=== PATIENT | female | born 1975 | race Caucasian/White ===

== ENCOUNTER 2021-02-16 22:42 | Emergency (ER) | payer OTHER ==
[~2021-02-16] VITALS: Ht 175.3 cm; Wt 100.9 kg
--- NOTE | 2021-02-16 22:49 | PHYS DOC ---
General Adult HPI: HPI: ".. I ve had really bad abdomen pain all day.. and now the Hives everywhere.. this has started in Sep. and I have had it off and on... But it is more severe tonight..." Patient is a 45 year old female who presents with above hx and complaints hives, itching, and generalized abdomen pain. Patient has had intermittent episodes since September with similar presentation. Patient states she frequently has abdomen pain with an onset of the hives. No recent travel. No specific ill contacts. No change in foods. No change in meds. No change in soaps or personal hygiene. No history immunosuppression. No history recent new exposures or foods. Pain usually starts with onset of abdomen pain and then development of the hives. Patient denies any history of hepatitis. 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 No animals are sick. Animals are up-to-date with vaccinations. Patient did get Shaheed & Shaheed vaccine in December of this past year. Review of Systems: Review of Systems: Constitutional: Denies fever or chills Eyes: Denies change in visual acuity HENT: Denies nasal congestion or sore throat Respiratory: Complaints of wheezing Cardiovascular: Denies chest pain or edema GI: Complains of epigastric abdominal pain, nausea,. Denies vomiting, bloody stools or diarrhea : Denies dysuria Musculoskeletal: Denies back pain or joint pain Integument: Complains of diffuse hives Neurologic: Denies headache, focal weakness or sensory changes Endocrine: Denies polyuria or polydipsia Lymphatic: Denies swollen glands Psychiatric: Denies depression or anxiety Family History: Family History: Noncontributory to presentation. Current Medications: Current Meds: See nursing for home meds Allergies: Allergies: No known drug allergies Physical Exam: PE: Constitutional: In moderate acute distress, non-toxic appearance. [] HENT: Normocephalic, atraumatic, bilateral external ears normal, oropharynx moist, no oral exudates, nose swollen turbinates and clear rhinorrhea Eyes: PERRLA, EOMI, conjunctiva normal, no discharge. [] Neck: Normal range of motion, no tenderness, supple, no stridor. [] Cardiovascular:Heart rate regular rhythm, no murmur [] Lungs & Thorax: Bilateral breath sounds equal at apex scattered wheezes auscultation [] Abdomen: Bowel sounds normal, soft, generalized upper abdomen tenderness, no masses, no pulsatile masses. [] Some rebound right upper quadrant Skin: Warm, dry, no erythema, extensive hives all over the body. Does have psoriasis on flexor areas of body. Back: No tenderness, no CVA tenderness. [] Extremities: No tenderness, no cyanosis, no clubbing, ROM intact, no edema. No cording appreciated Neurologic: Alert and oriented X 3, normal motor function, normal sensory function, no focal deficits noted. [] Psychologic: Affect anxious,, judgement normal, mood normal. [] EKG: EKG: My interpretation EKG shows a sinus rhythm at 63 bpm. No acute morphology. No findings of STEMI. [] Radiology/Procedures: Radiology/Procedures: [address] [address] IMAGING REPORT Signed PATIENT: ERICA WOODWARD CACCOUNT: [id number] : 1975 LOCATION: ER AGE: 45 SEX: F EXAM STATUS: REG ER ORD. PHYSICIAN: VIPIN RAUSCH MD REASON: OMNI 300,75ML IV.Epigastric & RUQ abdomen pain PROCEDURE: CT ABD PELV W/ORAL&IV CONTRAST INDICATION: Reason: OMNI 300,75ML IV.Epigastric RUQ abdomen pain / Spl. Instructions: / History: . COMPARISON: None. TECHNIQUE: Axial CT images obtained through the abdomen and pelvis with contrast. One or more of the following individualized dose reduction techniques were utilized for this examination: 1. Automated exposure control; 2. Adjustment of the mA and/or kV according to patient size; 3. Use of iterative reconstruction technique. FINDINGS: 3 mm left lung base nodule. Abdominal aorta is not aneurysmal. Mild low density within the periportal region with prominent liver size. No peripancreatic fluid collection. No perisplenic hematoma. Spleen prominent in size. Urinary bladder is partially distended with mild prominence of the wall. No hydronephrosis. No periappendiceal inflammatory changes. Dominant follicle or small cyst right ovary measuring approximately 19 mm. Degenerative changes spine. IMPRESSION: * No evidence of bowel obstruction or appendicitis. * Urinary bladder wall is mildly prominent. Would correlate with symptoms in the region to ensure that this is not from a pathologic cause such as mild cystitis. Electronically signed by: Lucy Almaguer MD (02/17/2021 3:47 AM) [id number] DICTATED AND SIGNED BY: LUCY ALMAGUER MD DATE: 02/17/21 1804 CC: ALICIA MAYO; VIPIN RAUSCH MD ~MTH0 0 [][address] [address] IMAGING REPORT Signed PATIENT: ERICA WOODWARD CACCOUNT: [id number] : 1975 LOCATION: ER AGE: 45 SEX: F EXAM STATUS: REG ER ORD. PHYSICIAN: VIPIN RAUSCH MD REASON: pain PROCEDURE: ACUTE ABDOMEN SERIES INDICATION: Reason: pain of abdomen/ Spl. Instructions: / History: COMPARISON: None. IMPRESSION: 3 views of the chest and abdomen obtained. No focal airspace consolidation to suggest pneumonia. Multiple calcifications within the pelvis which is commonly from phleboliths formation but would be difficult to exclude ureter stone. There is some high density foci within the abdomen which could be from calcifications or bowel content. Nonspecific bowel gas pattern with mild air-filled prominence of transverse colon measuring up to approximately 6 cm. Moderate stool in colon. Electronically signed by: Lucy Almaguer MD (02/16/2021 11:42 PM) [email or web address]- [id number] DICTATED AND SIGNED BY: LUCY ALMAGUER MD DATE: 02/16/21 4584 CC: ALICIA MAYO; VIPIN RAUSCH MD ~MTH0 0 Heart Score: C/O Chest Pain: Yes HEART Score for Chest Pain: HEART Score for Chest Pain Response (Comments) Value History Slighlty/Non-Suspicious 0 ECG Normal 0 Age >45 - < 65 1 Risk Factors 1 or 2 Risk Factors 1 Troponin < Normal Limit 0 Total 2 Risk Factors: Risk Factors: DM, Current or recent (<one month) smoker, HTN, HLP, family history of CAD, obesity. Risk Scores: Score 0 - 3: 2.5% MACE over next 6 weeks - Discharge Home Score 4 - 6: 20.3% MACE over next 6 weeks - Admit for Clinical Observation Score 7 - 10: 72.7% MACE over next 6 weeks - Early Invasive Strategies Course & Med Decision Making: Course & Med Decision Making Pertinent Labs and Imaging studies reviewed. (See chart for details) Patient remain on clear fluid diet for the next couple days. Push fluids. Attempt to then isolate food groups to determine if this is a food allergy. Patient follow-up pending lab test particularly hepatitis panel. Patient follow-up primary care. Consider ultrasound of epigastric and abdomen. Patient return if any concerns. Follow up pending labs. Take prednisone 50 mg a day for 5 days. Take Pepcid 20 mg twice a day for 10 days. Use MDI 2 puffs 4 times a day. Benadryl 50 mg up to 4 times a day for itching. Impression: 1. Allergic reaction 2. Abdomen pain 3. Elevated AST 968, ALT 819, alk phos 126. 4. Elevated glucose level 156 5. Psoriasis 6. Covid vaccination in December [employer]heed [employer] [] Dragon Disclaimer: Dragon Disclaimer: This electronic medical record was generated, in whole or in part, using a voice recognition dictation system. Departure Departure: Referrals: ALICIA MAYO (PCP) Scripts Famotidine (PEPCID) 20 Mg Tablet 20 MG PO BID for allergy/ for 10 Days, #20 TAB Prov: VIPIN RAUSCH MD 02/17/21 Prednisone (PREDNISONE) 50 Mg Tablet 50 MG PO DAILY for allergy for 5 Days, #5 TAB Prov: VIPIN RAUSCH MD 02/17/21 Dragon Disclaimer This chart was dictated in whole or in part using Voice Recognition software in a busy, high-work load, and often noisy Emergency Department environment. It may contain unintended and wholly unrecognized errors or omissions. Dragon Disclaimer This chart was dictated in whole or in part using Voice Recognition software in a busy, high-work load, and often noisy Emergency Department environment. It may contain unintended and wholly unrecognized errors or omissions. VIPIN RAUSCH MD Feb 16, 2021 22:49
[2021-02-16] MEDS ORDERED: FAMOTIDINE 20 MG/2 ML VIAL IVP ONE (23:30)
[2021-02-16] MEDS ORDERED: diphenhydrAMINE 50 MG/ML VIAL IV ONE (23:30)
[2021-02-16] MEDS ORDERED: ALBUTEROL SULFATE 8GM INHALER. INH ONE (23:30)
[2021-02-16] MEDS ORDERED: MAGNESIUM HYDROXIDE 2,400 MG/30 ML ORAL.SUSP. PO ONE (23:30)
[2021-02-16] MEDS ORDERED: methylPREDNISolone SOD SUCC PF 125 MG/2 ML VIAL. IV ONE (23:30)
[2021-02-16] MEDS ORDERED: IV RINGERS SOLUTION,LACTATED 1,000 ML IV SCH (23:30)
--- NOTE | 2021-02-16 23:44 | RAD ---
INDICATION: Reason: pain of abdomen/ Spl. Instructions: / History: COMPARISON: None. IMPRESSION: 3 views of the chest and abdomen obtained. No focal airspace consolidation to suggest pneumonia. Mult iple calcifications within the pelvis which is commonly from phleboliths formation but would be diffi cult to exclude ureter stone. There is some high density foci within the abdomen which could be from calcifications or bowel content. Nonspecific bowel gas pattern with mild air-filled prominence of tra nsverse colon measuring up to approximately 6 cm. Moderate stool in colon. Electronically signed by: Bishnu Hummel MD (02/16/2021 11:42 PM) [id number]
[2021-02-17 00:06] LABS: BARBITURATES NEG (NEG); BENZODIAZEPINES NEG (NEG); CANNABINOIDS NEG (NEG); COCAINE NEG (NEG); METHADONE NEG (NEG); OPIATES NEG (NEG); PHENCYCLIDINE NEG (NEG)
[2021-02-17 00:08] LABS: AMPHETAMINE/METHAMPHETAMINE NEG (NEG)
[2021-02-17 00:14] LABS: CALCIUM 8.7 mg/dL (8.5-10.1); CREATININE 0.6 mg/dL (0.6-1.0); GFR 108.1; POTASSIUM 4.1 mmol/L (3.5-5.1)
[2021-02-17 00:27] LABS: ALBUMIN 3.5 g/dL (3.4-5.0); MAGNESIUM 2.1 mg/dL (1.8-2.4); TOTAL BILIRUBIN 3.4 mg/dL (0.2-1.0); TOTAL PROTEIN 7.2 g/dL (6.4-8.2)
[2021-02-17 00:34] LABS: CLARITY,URINE CLEAR; COLOR,URINE YELLOW
[2021-02-17 00:35] LABS: BACTERIA,URINE 0 /HPF (0-FEW); BILIRUBIN,URINE SMALL (NEG); GLUCOSE,URINE 100 mg/dL (NEG); NITRITE,URINE NEG (NEG); SQUAMOUS EPITHELIAL CELL,UR OCC /LPF; UROBILINOGEN,URINE 0.2 mg/dL (0.2 mg/dL); WBC,URINE 0 /HPF (0-4)
[2021-02-17 00:57] LABS: BASO % 0 % (0-3); EOS # 0.1 x10^3/uL (0.0-0.7); EOS % 1 % (0-3); HEMATOCRIT 42.3 % (36.0-47.0); HEMOGLOBIN 14.5 g/dL (12.0-15.5); LYMPH # 1.6 x10^3/uL (1.0-4.8); LYMPH % 19 % (24-48); MEAN CORPUSCULAR HEMOGLOBIN 32 pg (25-35); MEAN CORPUSCULAR HGB CONC 34 g/dL (31-37); MEAN CORPUSCULAR VOLUME 93 fL (79-100); MONO # 0.7 x10^3/uL (0.0-1.1); MONO % 8 % (0-9); NEUT # 5.8 x10^3uL (1.8-7.7); NEUT % 71 % (31-73); PLATELET COUNT 277 x10^3/uL (140-400); RED BLOOD COUNT 4.56 x10^6/uL (3.50-5.40); RED CELL DISTRIBUTION WIDTH 13.4 % (11.5-14.5); WHITE BLOOD COUNT 8.2 x10^3/uL (4.0-11.0)
[2021-02-17] MEDS ORDERED: IOHEXOL 240 MG/ML 50ML VIAL. ONE (02:06)
--- NOTE | 2021-02-17 03:02 | EKG ---
[address] [address] Test Date: 2021-02-16 Test Time: 23:50:18 Pat Name: ERICA WOODWARD Department: Room: Gender: F [employer]: RAYRAY : 1975 Requested By: VIPIN RAUSCH Order Number: [id number] Reading MD: Measurements Intervals Fox Rate: 63 P: -24 PA: 148 QRS: 5 QRSD: 82 T: 30 QT: 414 QTc: 427 Interpretive Statements SINUS RHYTHM NORMAL ECG RI6.02 No previous ECG available for comparison
[2021-02-17] MEDS ORDERED: IOHEXOL 300 MG/ML 75 ML VIAL. IV ONE (03:30)
[2021-02-17] MEDS ORDERED: CONTRAST GIVEN. MC PRN (03:30)
--- NOTE | 2021-02-17 03:49 | RAD ---
INDICATION: Reason: OMNI 300,75ML IV.Epigastric RUQ abdomen pain / Spl. Instructions: / History: . COMPARISON: None. TECHNIQUE: Axial CT images obtained through the abdomen and pelvis with contrast. One or more of the following individualized dose reduction techniques were utilized for this examinat ion: 1. Automated exposure control; 2. Adjustment of the mA and/or kV according to patient size; 3 . Use of iterative reconstruction technique. FINDINGS: 3 mm left lung base nodule. Abdominal aorta is not aneurysmal. Mild low density within the periportal region with prominent liver size. No peripancreatic fluid collection. No perisplenic hematoma. Spleen prominent in size. Urinary bladder is partially distended with mild prominence of the wall. No hydronephrosis. No periappendiceal inflammatory changes. Dominant follicle or small cyst right ovary measuring approximately 19 mm. Degenerative changes spine. IMPRESSION: * No evidence of bowel obstruction or appendicitis. * Urinary bladder wall is mildly prominent. Would correlate with symptoms in the region to ensure th at this is not from a pathologic cause such as mild cystitis. Electronically signed by: Bishnu Hummel MD (02/17/2021 3:47 AM) [id number]
[2021-02-17] MEDS ORDERED: FAMO-63 PO (04:08)
[2021-02-17] MEDS ORDERED: PRED50TA PO (04:08)
[2021-02-17 04:15] VITALS: BP 105/56
== END 2021-02-17 04:17 | disposition home or self-care (01) ==
LOC: ER 22:42
DX: T78.49XA Other allergy, initial encounter (principal); R79.89 Other specified abnormal findings of blood chemistry; R10.13 Epigastric pain; R73.9 Hyperglycemia, unspecified; L40.9 Psoriasis, unspecified; X58.XXXA Exposure to other specified factors, initial encounter
CPT/HCPCS: 36415; 74022; 74177; 80048; 80076; 80307; 81001; 82150; 82550; 83690; 83735; 83880; 84443; 84484; 85025; 86705; 86709; 86803; 87340; 93005; 94640; 96361; 96374; 96375; 99285; J1200; J2060; J2930; J3490; J7120; Q9967; 94664